=== PATIENT | female | born 1985 | race Two or more races ===

== ENCOUNTER 2024-10-28 01:47 | Emergency (ER) | payer MEDICAID, SELFPAY ==
[2024-10-28 02:00] VITALS: BP 127/81; PULSE 73; RESP 18; TEMP 36.4; O2SAT 99
--- NOTE | 2024-10-28 02:10 | XR_ITS ---
Examination: Abdomen sonogram, Limited Date and time of exam: October 28, 2024 0328 hrs. Indications: Epigastric pain beginning 4 hours ago Technique: Real-time farooq scale transabdominal sonographic images of the upper abdomen obtained. Findings: Multiple gallstones Gallbladder wall 0.2 cm no edema Common bile duct is enlarged 0.6 cm no definite stones Pancreatic head 2.3 cm Liver 15.7 cm no focal liver lesions mild fatty infiltration Normal hepatopedal portal venous flow Patent IVC Impression: Cholelithiasis, negative for cholecystitis Enlarged common bile duct 0.6 cm, if biliary colic is a clinical consideration, suggest MRCP follow-up
--- NOTE | 2024-10-28 02:10 | PD.EDRME ---
Rapid Medical Screening Exam RME Arrival date/time: 10/28/24 01:47 39F with history of gallstones presents to ED with 1 day or RUQ pain and N/V. Chief Complaint: Abdominal Pain Vital signs: Vital Signs Temperature 97.5 F 10/28/24 02:00 Pulse Rate 73 10/28/24 02:00 Respiratory Rate 18 10/28/24 02:00 Blood Pressure 127/81 10/28/24 02:00 Pulse Oximetry (%) 99 10/28/24 02:00 Oxygen Delivery Method Room Air 10/28/24 02:00
[2024-10-28] MEDS: HYDROcodone/APAP 5/325 TABLET 1 TAB PO (02:31)
[2024-10-28] MEDS: ONDANSETRON ODT 4 MG TABRAP PO (02:31)
[2024-10-28 02:47] LABS: Collection Type, Urine Clean Catch
[2024-10-28 02:48] LABS: Basophils % (Auto) 0 % (0-2.5); Eosinophils # (Auto) 0.1 Thou/mm3 (0.0-0.5); Eosinophils % (Auto) 1 % (0-10); Hematocrit 39.2 % (36.0-46.0); Hemoglobin 13.2 g/dL (12.0-16.0); Immature Granulocytes % (Auto) 0 % (0-0); Immature Granulocytes Auto 0.02 Thou/mm3 (0.00-0.00); Lymphocytes % (Auto) 32 % (10-50); Mean Corpuscular HGB Conc 33.7 g/dl (31.0-37.0); Mean Corpuscular Hemoglobin 30.1 pg (25.0-35.0); Mean Corpuscular Volume 90 fL (80-100); Monocytes # (Auto) 0.5 Thou/mm3 (0.0-0.8); Monocytes % (Auto) 6 % (0-12); Neutrophils # (Auto) 5.5 Thou/mm3 (1.8-7.7); Neutrophils % (Auto) 60 % (37-80); Nucleated Red Blood Cell % 0 /100 WBC (0); RDW Standard Deviation 39.9 fL (36.4-46.3); Red Blood Count 4.38 Miln/mm3 (4.00-5.20); White Blood Count 9.1 Thou/mm3 (3.6-11.0)
[2024-10-28 02:52] LABS: Platelet Count 74 Thou/mm3 (140-440)
[2024-10-28 02:58] LABS: Alanine Aminotransferase 46 U/L (10-49); Albumin, Serum 4.4 gm/dL (3.5-5.0); Albumin/Globulin Ratio 1.8 (1.2-2.2); Alkaline Phosphatase 84 U/L (46-116); Anion Gap 8 (7-16); Aspartate Amino Transferase 69 U/L (0-34); BUN/Creatinine Ratio 18 Ratio (12-20); Bilirubin,Total 0.3 mg/dL (0.3-1.2); Blood Urea Nitrogen 14 mg/dL (9-23); Carbon Dioxide 23.3 mMol/L (20.0-31.0); Chloride 107 mMol/L (98-107); Creatinine (Component) 0.8 mg/dL (0.6-1.3); Globulin 2.4 gm/dL (2.3-3.5); Glucose 117 mg/dL (74-106); Lipase 48 U/L (12-53); Osmolality,Calculated 277 (275-295); Potassium 4.1 mMol/L (3.4-5.1); Sodium 138 mMol/L (136-145); Total Protein 6.8 gm/dL (5.7-8.2); eGFR > 60 See Note
[2024-10-28 03:00] LABS: Slide Review Platelets confirmed
[2024-10-28 03:00] LABS: Bacteria,Urine Rare; Bilirubin,Urine Negative (Negative); Blood,Urine 1+ (Negative); Clarity,Urine Clear (Clear/Hazy); Color,Urine Lt-Yellow (Lt Yel-Yel); Glucose, Urine Negative (Negative); Ketones,Urine Negative (Negative); Leukocyte Esterase,Urine Negative (Negative); Nitrite,Urine Negative (Negative); Protein,Urine Trace (Neg - Trace); RBC,Urine 4 /hpf (0-3); Specific Gravity,Urine 1.029 (1.001-1.035); Squamous Epithelial Cell,Urine 3 /hpf (0-5); Urobilinogen,Urine Negative mg/dL (0.0-1.0); WBC,Urine 3 /hpf (0-5)
[2024-10-28 03:02] LABS: HCG Qualitative,Urine Negative
[2024-10-28 03:05] LABS: Amphetamine/Methamp Scrn,U Negative (Negative); Barbiturate Screen,Urine Negative (Negative); Benzodiazepines Screen,Urine Negative (Negative); Benzoylecgonine Screen, Ur Negative (Negative); Fentanyl Screen,Urine Negative (Negative); Opiate Screen,Urine Negative (Negative); THC Screen,Urine Negative (Negative)
--- NOTE | 2024-10-28 03:28 | EDNOTE_ITS ---
ED Abdominal Pain RME/HPI General Chief Complaint: Abdominal Pain Stated complaint: ABD PAIN Time seen by provider: 10/28/24 03:11 Arrival date/time: 10/28/24 01:47 Source: patient Mode of arrival: ambulatory Limitations: no limitations RME / HPI RME / HPI narrative: 10/28/24 01:47 39F with history of gallstones presents to ED with 1 day or RUQ pain and N/V. Dr. Hancock?s Main ED Evaluation: 39-year-old female with a known history of gallstones who presents to the emergency department with complaints of abdominal pain, which she attributes to a gallstone flare-up. She reports that she has been dealing with episodic abdominal pain related to gallstones for several years. However, over the past year, these episodes have become more frequent and more intense. The current episode of pain began earlier today, localized primarily to the right upper quadrant and epigastric regions. The pain is associated with nausea and episodes of vomiting. The patient denies fever, chills, jaundice, changes in bowel habits, or urinary symptoms. She also denies any recent changes in appetite, unintentional weight loss, or other systemic complaints. Related Data Previous Rx's ?Medication ?Instructions ?Recorded cyclobenzaprine 10 mg tablet 10 mg PO TID #30 tabs ibuprofen 600 mg tablet 600 mg PO Q6H #30 tabs 08/05 Allergies Allergy/AdvReac Type Severity Reaction Status Date / Time No Known Allergies Allergy Verified 10/28/24 01:53 Review of Systems Review of Systems Systems Reviewed: All systems reviewed, normal except as documented Past Medical History Social History SMOKING STATUS: Never smoker ED Exam Narrative Physical exam: GENERAL APPEARANCE: alert and oriented x 4, well-developed, well-nourished, no acute distress VITALS: All vitals were reviewed and the pulse ox is 99% on room air, which is normal according to my interpretation. HEENT: Normocephalic, atraumatic; pupils equal, round, reactive to light; EOMI; mucous membranes pink, moist; oropharynx clear NECK: Supple LUNGS: CTABL; no wheezes, no rales, no rhonchi HEART: Regular rate, regular rhythm; normal S1, S2; no murmurs ABDOMEN: non distended; normal BS; soft, no tenderness, no guarding, no rebound; no masses, no organomegaly, no hernia BACK: no CVA tenderness EXTREMITIES: atraumatic; no edema NEUROLOGIC: awake; alert and oriented x4; cranial nerves II-XII grossly intact; no focal sensory or motor deficits PSYCHIATRIC: appropriate mood and affect SKIN: warm, dry, normal color; no rashes General Limitations: Present no limitations Course Quality Measures none Orders Category Date Time Status US gall bladder Stat Exams 10/28/24 02:10 Taken CBC Stat Lab 10/28/24 02:15 Completed CMP [Comprehensive Metabolic Panel] Stat Lab 10/28/24 02:15 Completed Drug Screen,Urine Stat Lab 10/28/24 02:44 Completed HCG Qualitative,Urine Stat Lab 10/28/24 02:44 Completed Lipase Stat Lab 10/28/24 02:15 Completed UA [Urinalysis] Stat Lab 10/28/24 02:44 Completed HYDROcodone*/APAP 5/325 [Gardner 5/325] Med 10/28/24 02:10 Discontinued 1 tab PO X1 ONE Ondansetron Odt [Zofran Odt] Med 10/28/24 02:10 Discontinued 4 mg PO X1 ONE Vital Signs Vital signs: Vital Signs Temperature 97.5 F 10/28/24 02:00 Pulse Rate 73 10/28/24 02:00 Respiratory Rate 18 10/28/24 02:00 Blood Pressure 127/81 10/28/24 02:00 Pulse Oximetry (%) 99 10/28/24 02:00 Oxygen Delivery Method Room Air 10/28/24 02:00 Abdominal Pain MDM MDM Narrative MDM Narrative:: Scribe Attestation: Stephen Abbasi am scribing for and in the presence of Dr. Hancock. Provider Notation: Although this document has been carefully reviewed, there may still be some phonetic and other typographical errors. These errors are purely grammatical due to imperfections in the software program and should not be construed in any way to compromise the substance of the patient's medical care during this visit. Patient data External records reviewed:: [facility] previous records Clinical information provided by:: patient Social determinants that could affect healthcare access:: none Patient has the following chronic illnesses:: See pmh How is presenting disease/condition affected by chronic disease/condition?: no chronic disease Evaluation data The following diagnostics were reviewed and interpreted by me:: lab results Lab and/or radiology exams considered but not ordered:: n/a Interpretation Summary: Labs reviewed Medications / Prescriptions Medications or Prescriptions considered but not ordered:: n/a Medication administrations:: Medication Administration History Discontinued Medications Hydrocodone Bitart/Acetaminophen (Hydrocodone/Apap 5/325 Tablet) 1 tab PO X1 ONE Stop: 10/28/24 02:11 Last Admin: 10/28/24 02:31 Dose: 1 tab Documented By: DM Ondansetron HCl (Ondansetron Odt 4 Mg Tabrap) 4 mg PO X1 ONE; Protocol Stop: 10/28/24 02:11 Last Admin: 10/28/24 02:31 Dose: 4 mg Documented By: DM as above Consultations Consultation(s) initiated? (list below): No Diagnosis Differential diagnosis abdominal pain: other (Choledocholithiasis, cholelithiasis, cholecystitis, and gallstone pancreatitis.) Most likely diagnosis given after review of the tests above:: see clinical impression below Admission Indicated Admission indicated?: not indicated Admission Request Was there a request for admission?: No Disposition Plan Disposition Plan: Discharge Discharge Attestation Discharge Attestation: The patient and all family members were given an opportunity to ask questions and understood the discharge instructions. Discharge instructions specifically effects, indications for sooner follow up or return to the emergency department, and the expected course of current diagnosis. Patient condition: Stable Discharge Plan Plan Patient Disposition: HOME (Self Care) Disposition Comment: Stable for discharge Patient condition on transfer: Stable Prescriptions/Referrals Prescriptions/Med Rec: No Action cyclobenzaprine 10 mg tablet 10 mg PO TID Qty: 30 0RF ibuprofen 600 mg tablet 600 mg PO Q6H Qty: 30 0RF Referrals: Ashkan Zamudio MD [Primary Care Provider] - In 1 week Vijaya Donald MD [Physician] - In 1 week Problem List Clinical Impression: Biliary colic Patient/Caregiver Discharge Instructions Discharge Activity: activity as tolerated Diet Instructions: No greasy or fatty foods. Education Materials: What Are Gallstones, Treating Gallstones, ED Gallstones with Biliary Colic Additional Instructions: Please return to the emergency department if you have any worsening or any further medical problems. Otherwise you should follow-up with your primary care doctor within the next several days. You should also call and make a follow-up appointment with Dr. Donald. Dr. Donald is our general surgeon. I have included the address and the phone number for her office. Please give them a call and make an appointment to be seen in follow-up here in the next few days. Print Language: Mexican Stand Alone Forms: Polly Award Info., Patient Portal Info Letter
[2024-10-28 04:26] VITALS: BP 132/76; PULSE 76; RESP 16; TEMP 36.7; O2SAT 99
--- NOTE | 2024-10-28 05:30 | PRELIM_ITS ---
Gallbladder ultrasound. October 28, 2024 at 0336 hours Clinical history: Right upper quadrant pain; has stones Findings: The visualized liver demonstrates heterogeneous echotexture without mass or ductal dilatation. The main portal vein is patent and demonstrates hepatopetal flow. The gallbladder is distended. There are numerous echogenic foci within the gallbladder lumen. No gallbladder wall thickening or pericholecystic fluid is identified. Sonographic Johnson sign is negative as per the technologist's note. The common duct is mildly prominent, measuring 6.3 mm. No free fluid is demonstrated on the submitted images. The pancreas is unremarkable to the extent visualized. The inferior vena cava is unremarkable to the extent visualized. Impression: 1. Cholelithiasis without sonographic evidence of acute cholecystitis. 2. Findings suggestive of liver parenchymal disease. 3. Mildly dilated common bile duct. No obstructing ductal calculus is demonstrated sonographically. Recommend clinical correlation and further evaluation with MRCP, if clinically indicated. Report Electronically Signed By: Marlo Esparza 10/28/2024 5:29:59 AM [EST]
== END 2024-10-28 04:28 | disposition home or self-care (01) ==
PROVIDERS: Physician Assistant; Emergency Provider Emergency Medicine; PCP Family Medicine
DX: K80.50 Calculus of bile duct without cholangitis or cholecystitis without obstruction (principal)
CPT/HCPCS: 36415; 76705; 80053; 80307; 81001; 81025; 83690; 85025; 99284; Q0162; A9270

== ENCOUNTER 2024-11-30 02:18 | Emergency (ER) | payer MEDICAID, SELFPAY ==
[2024-11-30 02:19] VITALS: BMI 32.3
[2024-11-30 02:24] VITALS: BP 147/82; PULSE 79; RESP 18; TEMP 36.8; O2SAT 99
--- NOTE | 2024-11-30 02:47 | EDNOTE_ITS ---
ED Abdominal Pain RME/HPI General Chief Complaint: Abdominal Pain Stated complaint: GALLBLADDER PAIN Time seen by provider: 11/30/24 02:35 Arrival date/time: 11/30/24 02:18 39F with history of gallstones presents to ED with RUQ pain. Patient has gallbladder removal scheduled later today here. Limitations: no limitations Related Data Home Medications ?Medication ?Instructions ?Recorded ?Confirmed ibuprofen 600 mg tablet 600 mg PO Q6H PRN pain 11/2811/28/24 Allergies Allergy/AdvReac Type Severity Reaction Status Date / Time No Known Allergies Allergy Verified 11/30/24 02:18 Review of Systems Review of Systems Systems Reviewed: All systems reviewed, normal except as documented Constitutional Constitutional: Reports system reviewed and no additional complaints, except as documented, Denies fever(s) and Denies headache(s) ENT Ears, Nose, Mouth, and Throat: Denies disequilibrium and Denies headache(s) Cardiovascular Cardiovascular: Reports system reviewed and no additional complaints, except as documented, Denies chest pain and Denies dyspnea Respiratory Respiratory: Reports system reviewed and no additional complaints, except as documented, Denies cough and Denies dyspnea Gastrointestinal Gastrointestinal: Reports system reviewed and no additional complaints, except as documented, Reports as per HPI, Reports abdominal pain, Denies nausea and Denies vomiting Neurologic Neurologic: Reports system reviewed and no additional complaints, except as documented, Denies confusion, Denies disequilibrium and Denies headache(s) Psychiatric Psychiatric: Denies confusion Past Medical History Past Medical History NEUROLOGIC: Negative Neurological Disorders CARDIAC: Negative Cardiac Disorders or Congestive Heart Failure RESPIRATORY: Negative Chronic Obstructive Pulmonary Disease (COPD) GASTROINTESTINAL: Positive Gastrointestinal Disorders and Gall Bladder Disease; Negative Hepatitis GENITOURINARY: Negative Genitourinary Disorders or Renal Disease REPRODUCTIVE: Positive Previous Pregnancies MUSCULOSKELETAL: Positive Musculoskeletal Disorders ENDOCRINE: Negative Endocrine Disorders, Diabetes Mellitus Type 1 or Diabetes Mellitus Type 2 HEMATOLOGIC: Negative Blood Disorders OTHER HISTORY: Negative Hospitalization, Autoimmune Disease, Shingles, Blood Transfusions, Blood Transfusion Reaction, Anesthesia Reactions or Cancer Family History FAMILY HISTORY: Positive Family Cardiac Disorders, Family Cancer and Family Surgery; Negative Family Psychiatric Problems, Family Respiratory Disorders, Family Gastrointestinal Problems or Family Anesthesia Reaction Social History SMOKING STATUS: Never smoker ED Exam General Limitations: Present no limitations General appearance: Present alert and in no apparent distress Head Head exam: Present atraumatic Eye Eye exam: Present normal appearance, PERRL and EOMI ENT ENT exam: Present normal exam, normal oropharynx and mucous membranes moist Neck Neck exam: Present normal inspection, full ROM and trachea midline Chest Chest inspection: Present normal inspection and symmetric chest wall rise Respiratory Respiratory exam: Present normal lung sounds bilaterally Cardiovascular Cardiovascular exam: Present regular rate, normal rhythm and normal heart sounds Abdominal Exam Abdominal exam: Present soft and normal bowel sounds Extremities Exam Extremities exam: Present normal inspection and full ROM Back Exam Back exam: Present normal inspection and full ROM Neurological Exam Neurological exam: Present alert, oriented X3 and CN II-XII intact Psychiatric Psychiatric exam: Present normal affect and normal mood Skin Skin exam: Present warm, dry, intact and normal color Course Quality Measures none Orders Category Date Time Status Morphine Inj Med 11/30/24 02:36 Discontinued 5 mg IM X1 ONE Vital Signs Vital signs: Vital Signs Temperature 98.2 F 11/30/24 02:24 Pulse Rate 79 11/30/24 02:24 Respiratory Rate 18 11/30/24 02:24 Blood Pressure 147/82 H 11/30/24 02:24 Pulse Oximetry (%) 99 11/30/24 02:24 Oxygen Delivery Method Room Air 11/30/24 02:24 O2 at 99% on RA and WNLs Abdominal Pain MDM MDM Narrative MDM Narrative:: 39F with history of gallstones presents to ED with RUQ pain. Patient has gallbla dder removal scheduled later today here. Physical exam reveals RUQ tenderness. Patient is afebrile, calm, and alert. Pain improved with meds. Patient would prefer to go home for a few hours and sle ep and come back at 6 am today for surgery. Patient data External records reviewed:: [facility] previous records Clinical information provided by:: patient Social determinants that could affect healthcare access:: none Patient has the following chronic illnesses:: gallstones How is presenting disease/condition affected by chronic disease/condition?: caused by Evaluation data The following diagnostics were reviewed and interpreted by me:: other (specify) (none) Lab and/or radiology exams considered but not ordered:: not ordered Interpretation Summary: n/a Medications / Prescriptions Medications or Prescriptions considered but not ordered:: ordered Medication administrations:: Medication Administration History Discontinued Medications Morphine Sulfate (Morphine Sulf Inj 10 Mg/Ml Vial) 5 mg IM X1 ONE Stop: 11/30/24 02:37 Last Admin: 11/30/24 02:55 Dose: 5 mg Documented By: MC above Consultations Consultation(s) initiated? (list below): No Diagnosis Differential diagnosis abdominal pain: abdominal pain, acute appendicitis, calculus of kidney, constipation, diverticulitis, endometriosis, gastroenteritis, pancreatitis, small bowel obstruction and other (gallstones) Most likely diagnosis given after review of the tests above:: gallstones Admission Indicated Admission indicated?: not indicated Admission Request Was there a request for admission?: No Disposition Plan Disposition Plan: Discharge Discharge Attestation Discharge Attestation: The patient and all family members were given an opportunity to ask questions and understood the discharge instructions. Discharge instructions specifically effects, indications for sooner follow up or return to the emergency department, and the expected course of current diagnosis. Patient condition: Stable Discharge Plan Plan Patient Disposition: HOME (Self Care) Disposition Comment: Stable Prescriptions/Referrals Prescriptions/Med Rec: No Action ibuprofen 600 mg tablet 600 mg PO Q6H PRN (Reason: pain) Referrals: Ashkan Zamudio MD [Primary Care Provider] - In 1 week Problem List Clinical Impression: Gallstones Patient/Caregiver Discharge Instructions Additional Instructions: Don't fall asleep and forget to come back at 6 AM. Print Language: Libyan Stand Alone Forms: Patient Portal Info Letter NOVA/HERO Supervising Physician NOVA/HERO Supervising Physician: Dr. Jackson
[2024-11-30] MEDS: MORPHINE SULF INJ 10 MG/ML VIAL 5 MG IM (02:55)
== END 2024-11-30 03:42 | disposition home or self-care (01) ==
PROVIDERS: Emergency Provider Emergency Medicine; PCP Family Medicine
DX: K80.20 Calculus of gallbladder without cholecystitis without obstruction (principal)
CPT/HCPCS: 96372; 99284; J2270

== ENCOUNTER 2024-11-30 05:50 | Day surgery (SDC) | payer MEDICAID, SELFPAY ==
[2024-11-28 10:51] VITALS: BMI 32.2
[2024-11-28 12:22] LABS: Basophils # (Auto) 0.1 Thou/mm3 (0.0-0.2); Basophils % (Auto) 1 % (0-2.5); Eosinophils # (Auto) 0.2 Thou/mm3 (0.0-0.5); Eosinophils % (Auto) 3 % (0-10); Hematocrit 41.8 % (36.0-46.0); Hemoglobin 13.5 g/dL (12.0-16.0); Immature Granulocytes % (Auto) 0 % (0-0); Immature Granulocytes Auto 0.01 Thou/mm3 (0.00-0.00); Lymphocytes # (Auto) 1.7 Thou/mm3 (1.0-4.8); Lymphocytes % (Auto) 31 % (10-50); Mean Corpuscular HGB Conc 32.3 g/dl (31.0-37.0); Mean Corpuscular Hemoglobin 29.7 pg (25.0-35.0); Mean Corpuscular Volume 92 fL (80-100); Monocytes # (Auto) 0.3 Thou/mm3 (0.0-0.8); Monocytes % (Auto) 5 % (0-12); Neutrophils # (Auto) 3.4 Thou/mm3 (1.8-7.7); Neutrophils % (Auto) 60 % (37-80); Nucleated Red Blood Cell % 0 /100 WBC (0); Platelet Count 370 Thou/mm3 (140-440); RDW Standard Deviation 41.3 fL (36.4-46.3); Red Blood Count 4.54 Miln/mm3 (4.00-5.20); White Blood Count 5.6 Thou/mm3 (3.6-11.0)
[2024-11-28 12:29] LABS: INR 0.9 (0.9-1.3); Partial Thromboplastin Time 24.8 Seconds (22.0-36.0); Prothrombin Time 10.3 Seconds (9.0-12.2)
[2024-11-28 12:35] LABS: HCG,Qualitative Serum Negative
[2024-11-28 12:46] LABS: Alanine Aminotransferase 59 U/L (10-49); Albumin, Serum 4.5 gm/dL (3.5-5.0); Albumin/Globulin Ratio 1.8 (1.2-2.2); Alkaline Phosphatase 88 U/L (46-116); Anion Gap 7 (7-16); Aspartate Amino Transferase < 8 U/L (0-34); BUN/Creatinine Ratio 13 Ratio (12-20); Bilirubin,Total 0.3 mg/dL (0.3-1.2); Blood Urea Nitrogen 10 mg/dL (9-23); Calcium 9.1 mg/dL (8.3-10.6); Calcium (Corrected) 9.1 mg/dL (8.5-10.1); Carbon Dioxide 24.5 mMol/L (20.0-31.0); Chloride 108 mMol/L (98-107); Creatinine (Component) 0.8 mg/dL (0.6-1.3); Estimated Creatinine Clearance 93.3 mL/min (>60); Globulin 2.5 gm/dL (2.3-3.5); Glucose 116 mg/dL (74-106); Osmolality,Calculated 277 (275-295); Potassium 4.4 mMol/L (3.4-5.1); Sodium 139 mMol/L (136-145); eGFR > 60 See Note
[2024-11-30] VITALS (8 sets, daily range): BP systolic 123–154; BP diastolic 68–101; PULSE 74–112; RESP 13–18; TEMP 36.2–36.8; O2SAT 97–100; BMI 31.8
[2024-11-30] MEDS: RINGERS LACTATED 1000 ML 1,000 ML 20 ML IV (06:45)
--- NOTE | 2024-11-30 07:32 | SUR.PREOP ---
Patient expressed gratitude for prayer before their procedure.
--- NOTE | 2024-11-30 10:12 | SUR.PHASEI ---
1012 Patient arrived to recovery resting comfortably in [facility], drowsy and able to arouse with verbal prompting, on oxygen 4L via nasal cannula, breathing unlabored, patients heart rate elevated 112, will monitor, no new orders noted from anesthesia provider, the remainder of patient vital signs are within normal limits, denies pain, dressing intact to abdomen; steri-strips, gauze, medipore tape, no bleeding noted, lung sounds clear upon auscultation, bilateral radial pulses present when palpated, report received from [place] [facility] and Dr. Arellano
--- NOTE | 2024-11-30 10:23 | ESOP_ITS ---
Date of Procedure 11/30/24 Pre Op Diagnosis Symptomatic cholelithiasis Post Op Diagnosis Same with hydrops of the gallbladder and cystic duct obstruction Procedure Laparoscopic cholecystectomy Findings Patient was found to have colorless bile on the entire gallbladder was filled with stones making it difficult to remove. Procedure Description After endotracheal anesthesia was given the patient was placed in supine position and the abdomen was prepped with chloroprep solution and draped in a sterile manner. After time out was performed I injected a few cc of of half percent Marcaine with epinephrine below the umbilicus and I made an incision for about 3 cm in length. The fascia was cleaned and Veress needle was inserted to create a pneumoperitoneum up to 15 mmHg. Then introduced a 12 mm trocar and a 10 mm camera through the fascia and I inspected the intra-abdominal organs as well as the gallbladder and the liver. Another 5 mm trocar was inserted in the epigastric region under direct vision after injecting some local anesthesia. At this time the patient was kept in reverse Trendelenburg position with the left lateral tilt. The third 5 mm trocar was inserted over the mid axillary line under direct vision and a Cr and Hilario grasper was used to hold the fundus of the gallbladder. The retraction was carried out by the training program assistant moving the fundus of the gallbladder towards the right shoulder of the patient to create enough traction. I placed a another 5 mm trocar in the midaxillary line just lateral to the rectus muscle under direct vision. I used a fenestrated grasper to retract the neck of the gallbladder laterally towards the patient's right hip. The Calot's triangle was exposed and I achieved the critical view of safety as follows: I dissected out the fatty tissue from the hepatocystic triangle and cleared this area. I also dissected inferior and posterior to the gallbladder to identify the cystic duct and the gallbladder wall. Then superiorly I dissected along the cystic plate up to lower one third third of the gallbladder to lift the gallbladder from the liver. At this time I confirmed t hat only 2 structures entering the gallbladder were cystic artery and the cystic duct. The common duct was seen distally but no dissection was carried out around the duct. I did not see any need for operative cholangiogram in this patient. The cystic duct was clipped doubly and then divided and cystic artery was similarly dealt with. Then the gallbladder was removed from the liver bed using Harmonic dale to control the small blood vessels as the dissection proceeded. During the dissection the gallbladder was entered and multiple small stones came out which were aspirated. I also noted that the patient had colorless bile suggesting hydrops. At this time I asked the anesthesiologist give 2 g of Ancef because it is clear contaminated case. Then the gallbladder was from the liver bed completely and delivered through the umbilical port using an Endopouch. The liver bed was coagulated with cautery to obtain satisfactory hemostasis. I applied 1 Surgicel for oozing at the liver bed. The trocars were pulled out from the abdominal cavity and the fascia at the umbilical incision was closed with interrupted 0 Ethibond. Subcutaneous tissues was closed with 3-0 chromic and injected a few cc of half percent Marcaine with epinephrine and the skin was closed with interrupted 4-0 nylon stitches at all the trocar sites. Dressing was applied with 2 x 2 and Tegaderm. Patient tolerated the procedure well and returned to recovery room in stable condition. Anesthesia GETA Pathology / specimen Other (Gallbladder and the stones) Estimated Blood Loss 30 Condition Stable Disposition PACU Surgeon Gregor Guerrero MD Surgical Staff Operation Date: 11/30/24 08:00 Case Staff Anesthesiologist: Marlo Arellano RNsurvey manager: Ivone Coombs
[2024-11-30] MEDS: fentaNYL CIT INJ 50 mCg/ML AMP 2ML IV (10:40)
--- NOTE | 2024-11-30 11:11 | SUR.PHASEII ---
1111 Patient meets discharge criteria from recovery, awake and alert, breathing unlabored, vital signs stable, per patient her pain is tolerable, dressing intact; no bleeding noted, patient drinking 7up; tolerating well, denies nausea, patient assisted with dressing into her clothing by her mother, discharge instructions given to patient and patients mother/cousin with teach-back approach, all receptive of instructions, patients cousin signed discharge instructions. Patient given all her belongings prior to discharge, transported via wheelchair and left in a private vehicle.
== END 2024-11-30 11:11 | disposition home or self-care (01) ==
PROVIDERS: PCP Family Medicine; Referring Provider Surgery; Visit Provider Surgery
PROC: 0FT44ZZ Resection of Gallbladder, Percutaneous Endoscopic Approach (ICD-10-PCS; CPT 47562; principal; 2024-11-30 08:00)
DX: K80.67 Calculus of gallbladder and bile duct with acute and chronic cholecystitis with obstruction (principal); K82.1 Hydrops of gallbladder
CPT/HCPCS: 47562; 36415; 80053; 84703; 85025; 85610; 85730; A4217; A4649; J0131; J0690; J1100; J2250; J2371; J2405; J2704; J2710; J3010; J3490; J7120; J1596